=== PATIENT | female | born 1975 | race Hispanic/Latino ===

== ENCOUNTER 2020-11-16 01:57 | Emergency (ER) | payer SELFPAY ==
[~2020-11-16] VITALS: Ht 157.5 cm; Wt 49.9 kg
[2020-11-16 02:20] VITALS: BP 149/95
[2020-11-16] MEDS ORDERED: MORPHINE 4 MG SYG IVP ONE (02:30)
[2020-11-16] MEDS ORDERED: ONDANSETRON 4MG INJ IVP ONE (02:30)
[2020-11-16] MEDS ORDERED: HYDROCODONE/ACETAMINOPHEN 5/325 MG TAB PO ONE (02:30)
[2020-11-16] MEDS ORDERED: LACTATED RINGERS 1000ML 1,000 ML IV ONE (02:30)
[2020-11-16 03:03] LABS: BASOPHILS % (AUTO) 0.8 % (0.0-5.0); EOSINOPHILS % (AUTO) 7.1 % (0.0-8.0); HEMATOCRIT 39.8 % (36-48); LYMPHOCYTES % (AUTO) 34.5 % (21.0-51.0); MEAN CORPUSCULAR HEMOGLOBIN 26.4 pg (27.0-33.0); MEAN CORPUSCULAR HGB CONC 30.7 g/dL (32.0-36.0); MEAN CORPUSCULAR VOLUME 86.1 fL (79-99); MONOCYTES % (AUTO) 6.2 % (3.0-13.0); NEUTROPHILS % (AUTO) 51.1 % (40.0-77.0); PLATELET COUNT (AUTO) 242 K/uL (130-400); RED BLOOD CELL COUNT(AUTO) 4.62 MIL/uL (4.00-5.50); RED CELL DISTRIBUTION WIDTH 22.1 % (11.0-15.5); WHITE BLOOD COUNT (AUTO) 7.9 K/uL (4.8-10.8)
[2020-11-16 03:05] LABS: ALBUMIN 2.1 g/dL (3.5-5.0); BILIRUBIN,TOTAL 0.3 mg/dL (0.2-1.0); CREATININE 1.9 mg/dL (0.5-1.5); TOTAL PROTEIN, SERUM 7.4 g/dL (6.0-8.3)
[2020-11-16 03:07] LABS: POTASSIUM 2.9 mmol/L (3.5-5.1)
[2020-11-16] MEDS ORDERED: POTASSIUM CHLORIDE 10MEQ/100ML 10 MEQ/100 ML ML IV SCH (03:30)
[2020-11-16 05:52] VITALS: BP 132/83
== END 2020-11-16 05:54 | disposition home or self-care (01) ==
LOC: EDH 01:57
DX: E87.6 Hypokalemia (principal); G89.29 Other chronic pain; M54.9 Dorsalgia, unspecified; N83.201 Unspecified ovarian cyst, right side; M79.672 Pain in left foot; E11.9 Type 2 diabetes mellitus without complications; M19.90 Unspecified osteoarthritis, unspecified site; J18.9 Pneumonia, unspecified organism; E78.00 Pure hypercholesterolemia, unspecified; J45.909 Unspecified asthma, uncomplicated; I10 Essential (primary) hypertension; Z79.899 Other long term (current) drug therapy
CPT/HCPCS: 36415; 71045; 73630; 74176; 80053; 82150; 83690; 85025; 93005; 96361; 96365; 96366; 96375; 99291; J2270; J2405; J7120